=== PATIENT | female | born 1945 | race Two or more races ===

== ENCOUNTER 2021-01-20 10:32 | Emergency (ER) | payer MEDICAID, OTHER ==
[~2021-01-20] VITALS: Ht 147.3 cm; Wt 44.9 kg
[2021-01-20 10:41] VITALS: BP 147/57
== END 2021-01-20 14:04 | disposition left against medical advice (07) ==
LOC: ER 10:32
DX: R19.7 Diarrhea, unspecified (principal); R11.10 Vomiting, unspecified; Z53.21 Procedure and treatment not carried out due to patient leaving prior to being seen by health care provider